=== PATIENT | male | born 1995 | race Hispanic/Latino ===

== ENCOUNTER 2025-02-18 09:01 | Emergency (ER) | payer BC ==
[~2025-02-18] VITALS: Ht 177.8 cm; Wt 97.5 kg
[2025-02-18 09:05] VITALS: PULSE 89; RESP 19; TEMP 99.3; O2SAT 99
[2025-02-18] MEDS ORDERED: AMOX TR-K CLV1 EAC2 PO (09:35)
[2025-02-18] MEDS ORDERED: BACTRIM DS TAB1 EACH PO (09:35)
== END 2025-02-18 11:27 | disposition home or self-care (01) ==
LOC: ER 09:31
DX: L05.91 Pilonidal cyst without abscess (principal); F41.9 Anxiety disorder, unspecified; F32.A Depression, unspecified
CPT/HCPCS: 99283